=== PATIENT | female | born 2000 | race Caucasian/White ===

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

== ENCOUNTER 2018-10-19 06:53 | Emergency (ER) | payer OTHER ==
[2018-10-19] MEDS ORDERED: NORMAL SALINE 1000 ML 1,000 ML IV ONE (08:39)
[2018-10-19 09:50] LABS: ABSOLUTE LYMPHOCYTES (AUTO) 1.3 10^3/uL (0.5-4.7); ABSOLUTE MONOCYTES (AUTO) 0.7 10^3/uL (0.1-1.4); ABSOLUTE NEUT (AUTO) 12.5 10^3/uL (1.7-8.2); BASOPHILS % (AUTO) 0.3 % (0-2); EOSINOPHILS % (AUTO) 0.2 % (0-6); HEMATOCRIT 36.8 % (36.0-47.0); HEMOGLOBIN 12.7 g/dL (12.0-15.5); LYMPHOCYTES % (AUTO) 9.1 % (13-45); MEAN CORPUSCULAR HGB CONC 34.6 g/dL (32.0-36.0); MEAN CORPUSCULAR VOLUME 90 fl (80-97); MONOCYTES % (AUTO) 4.6 % (3-13); PLATELET COUNT 137 10^3/uL (150-450); SEGMENTED NEUTROPHILS % (AUTO) 85.8 % (42-78); TOTAL CELLS COUNTED % (AUTO) 100 %; WHITE BLOOD COUNT 14.5 10^3/uL (4.0-10.5)
[2018-10-19 10:15] LABS: ANION GAP 10 (5-19); BLOOD UREA NITROGEN 5 mg/dL (7-20); CALCIUM 9.9 mg/dL (8.4-10.2); CARBON DIOXIDE 23 mmol/L (22-30); CHLORIDE 103 mmol/L (98-107); GLUCOSE 87 mg/dL (75-110); POTASSIUM 3.8 mmol/L (3.6-5.0)
[2018-10-19 11:24] LABS: APPEARANCE,URINE SLIGHTLY-CLOUDY; BILIRUBIN,URINE NEGATIVE (NEGATIVE); COLOR,URINE YELLOW; GLUCOSE, URINE NEGATIVE (NEGATIVE); KETONES,URINE 20 mg/dL (NEGATIVE); LEUKOCYTE ESTERASE,URINE NEGATIVE (NEGATIVE); NITRITE,URINE NEGATIVE (NEGATIVE); PROTEIN,URINE NEGATIVE (NEGATIVE); URINE SPECIFIC GRAVITY 1.009; UROBILINOGEN,URINE NEGATIVE mg/dL (<2.0)
--- NOTE | 2018-10-19 12:04 | ER Document Report ---
ED General - General Chief Complaint: Cold Symptoms Stated Complaint: FEVER,CHILLS Time Seen by Provider: 10/19/18 08:13 Notes: Patient is a 18-year-old female currently 11 weeks presents to the emergency department for generalized cough and congestion for the last 2 days. Patient states last evening she had a fever T-max 100.8. States she has been taking Sudafed [id number]. Patient's denying any abdominal pain, dysuria, vaginal discharge or bleeding. Patient's denying any chest pain or respiratory distress. Patient's denying any medical problems, takes vitamins, denies any allergies TRAVEL OUTSIDE OF THE [place] IN LAST 30 DAYS: No - Related Data Allergies/Adverse Reactions: No Known Allergies Allergy (Verified 10/19/18 07:41) Past Medical History - General Information source: Patient - Social History Smoking Status: Never Smoker Chew tobacco use (# tins/day): No Frequency of alcohol use: None Drug Abuse: None Family History: Reviewed & Not Pertinent Patient has suicidal ideation: No Patient has homicidal ideation: No Renal/ Medical History: Denies: Hx Peritoneal Dialysis - Immunizations Immunizations up to date: Yes Hx Diphtheria, Pertussis, Tetanus Vaccination: Yes Review of Systems - Review of Systems Constitutional: Fever EENT: See HPI Cardiovascular: No symptoms reported Respiratory: See HPI Gastrointestinal: No symptoms reported Genitourinary: No symptoms reported Female Genitourinary: No symptoms reported Musculoskeletal: No symptoms reported Skin: No symptoms reported Hematologic/Lymphatic: No symptoms reported Neurological/Psychological: No symptoms reported Physical Exam - Vital signs Vitals: Temp Pulse Resp BP Pulse Ox 99.2 F 133 H 16 118/67 96 10/19/18 07:15 10/19/18 07:15 10/19/18 07:15 10/19/18 07:15 10/19/18 07:15 - Notes Notes: GENERAL: Alert, interacts well. No acute distress. HEAD: Normocephalic, atraumatic. No frontal or maxillary sinus tenderness noted EYES: Pupils equal, round, and reactive to light. Extraocular movements intact. ENT: Oral mucosa moist, tongue midline. Nares patent, TM's intact, nonerythematous, nonbulging bilaterally. Pharynx within normal limits no palatal petechiae or exudate noted. NECK: Full range of motion. Supple. Trachea midline. No lymphadenopathy apprec iated LUNGS: Clear to auscultation bilaterally, no wheezes, rales, or rhonchi. No respiratory distress. HEART: Tachycardic rate and rhythm. No murmur ABDOMEN: Soft, non-tender. Non-distended. Bowel sounds present in all 4 quadrants. EXTREMITIES: Moves all 4 extremities spontaneously. No edema, normal radial and dorsalis pedis pulses bilaterally. No cyanosis. BACK: no cervical, thoracic, lumbar midline tenderness. No saddle anesthesia, normal distal neurovascular exam. NEUROLOGICAL: Alert and oriented x3. Normal speech. cranial nerves II through XII grossly intact PSYCH: Normal affect, normal mood. SKIN: Warm, dry, normal turgor. No rashes or lesions noted. Course - Re-evaluation Re-evalutation: 10/19/18 12:02 Laboratory 10/19/18 10/19/18 10/19/18 09:30 09:30 11:00 WBC 14.5 H RBC 4.10 Hgb 12.7 Hct 36.8 MCV 90 MCH 31.0 MCHC 34.6 RDW 13.0 Plt Count 137 L Lymph % (Auto) 9.1 L [place] % (Auto) 4.6 Eos % (Auto) 0.2 Baso % (Auto) 0.3 Absolute Neuts (auto) 12.5 H Absolute Lymphs (auto) 1.3 Absolute Monos (auto) 0.7 Absolute Eos (auto) 0.0 Absolute Basos (auto) 0.0 Seg Neutrophils % 85.8 H Sodium 135.5 L Potassium 3.8 Chloride 103 Carbon Dioxide 23 Anion Gap 10 BUN 5 L Creatinine 0.55 Est GFR ( Amer) > 60 Est GFR (MDRD) Non-Af > 60 Glucose 87 Calcium 9.9 Urine Color YELLOW Urine Appearance SLIGHTLY-CLOUDY Urine pH 8.0 Ur Specific [place] 1.009 Urine Protein NEGATIVE Urine Glucose (UA) NEGATIVE Urine Ketones 20 H Urine Blood NEGATIVE Urine Nitrite NEGATIVE Urine Bilirubin NEGATIVE Urine Urobilinogen NEGATIVE Ur Leukocyte Esterase NEGATIVE Urine WBC (Auto) 1 Urine RBC (Auto) 1 Urine Bacteria (Auto) TRACE Squamous Epi Cells Auto 6 Urine Mucus (Auto) RARE Urine Ascorbic Acid NEGATIVE Urine HCG, Qual POSITIVE H Patient's urine sent for culture. Patient's physical exam is consistent with an upper respiratory infection. Discussed with her Sudafed is not a safe option in . Discussed the use of Tylenol or Benadryl. Discussed staying well-hydrated. Patient voices after fluids in the emergency department she overall feels a lot better. At this time will discharge with return precautions and follow-up recommendati ons. Verbal discharge instructions given a the bedside and opportunity for questions given. Medication warnings reviewed. Patient is in agreement with this plan and has verbalized understanding of return precautions and the need for primary care follow-up in the next 24-72 hours. This medical record was dictated with voice recognizing software. There may be grammatical, syntax errors that are unintended. - Vital Signs Vital signs: Temp Pulse Resp BP Pulse Ox 98.4 F 108 H 18 116/63 100 10/19/18 08:25 10/19/18 10:25 10/19/18 10:25 10/19/18 10:25 10/19/18 10:25 - Laboratory Result Diagrams: 10/19/18 09:30 10/19/18 09:30 Laboratory results interpreted by me: 10/19/18 10/19/18 10/19/18 09:30 09:30 11:00 WBC 14.5 H Plt Count 137 L Lymph % (Auto) 9.1 L Absolute Neuts (auto) 12.5 H Seg Neutrophils % 85.8 H Sodium 135.5 L BUN 5 L Urine Ketones 20 H Urine HCG, Qual POSITIVE H Discharge - Discharge Clinical Impression: Tachycardia Upper respiratory infection Qualifiers: URI type: unspecified viral URI Qualified Code(s): J06.9 - Acute upper respiratory infection, unspecified Condition: Stable Disposition: HOME, SELF-CARE Instructions: Viral Syndrome ([facility]), Upper Respiratory Illness ([facility]) Additional Instructions: As we discussed you have been seen and treated in the emergency department for an upper respiratory infection while . Sudafed is NOT a safe option for [id number] medications. You can take [id number] Tylenol or Benadryl for generalized symptoms. Please stay well-hydrated and follow-up with your primary care provider in the next 24 to 48 hours. Return to the emergency room for any further concerns. Forms: Return to Work
[2018-10-19 12:13] VITALS: BP 107/57
== END 2018-10-19 12:14 | disposition home or self-care (01) ==
LOC: ER 06:53
DX: O99.511 Diseases of the respiratory system complicating pregnancy, first trimester (principal); J06.9 Acute upper respiratory infection, unspecified; R00.0 Tachycardia, unspecified; O26.891 Other specified pregnancy related conditions, first trimester; R05 Cough; R09.81 Nasal congestion; R50.9 Fever, unspecified; Z3A.11 11 weeks gestation of pregnancy
CPT/HCPCS: 99283; 96360; 36415; 87086; 85025; 81025; 80048; 81001; J7030

== ENCOUNTER 2019-03-24 16:17 | Outpatient (CLI) | payer OTHER ==
[2019-03-24 17:08] LABS: BACTERIA (WET MOUNT) 3+ BACTERIA SEEN; RBCS (WET MOUNT) RARE RBCS SEEN; T.VAGINALIS (WET MOUNT) NO TRICHOMONAS SEEN; WBCS (WET MOUNT) 2+ WBCS SEEN; YEAST (WET MOUNT) NO YEAST SEEN
[2019-03-24 17:09] LABS: EPITHELIALS (WET MOUNT) 4+ EPITHELIALS SEEN
--- NOTE | 2019-03-24 18:26 | RADIOLOGY REPORT (SQ) ---
EXAM DESCRIPTION: U/S OB LIMITED COMPLETED DATE/TIME: 03/24/2019 5:18 pm REASON FOR STUDY: cervical length COMPARISON: None. TECHNIQUE: Limited transabdominal grayscale ultrasound for evaluation of specific requested obstetri arleen parameters. LIMITATIONS: None. FINDINGS: CERVICAL LENGTH: 2.7 cm. Closed. JEFFREY: 6.2 cm. FHR: 143 beats per minute. PRESENTATION: Cephalic. PLACENTA: Anterior, grade 1. Small placental lakes. ANATOMY: Not assessed OTHER: No other significant findings. IMPRESSION: LIMITED OBSTETRICAL ULTRASOUND WITH MEASURED PARAMETERS DELINEATED ABOVE. Trimester of : 33 weeks TECHNICAL DOCUMENTATION: JOB ID: [id number] 2010 [employer]- All Rights Reserved Reading location - IP/workstation name: [email or web address]
[2019-03-24 18:34] LABS: CHLAM PCR NOT DETECTED (NOT DETECT)
[2019-03-24 18:49] LABS: APPEARANCE,URINE CLEAR; BILIRUBIN,URINE NEGATIVE (NEGATIVE); COLOR,URINE YELLOW; GLUCOSE, URINE NEGATIVE (NEGATIVE); KETONES,URINE NEGATIVE (NEGATIVE); LEUKOCYTE ESTERASE,URINE MODERATE (NEGATIVE); NITRITE,URINE NEGATIVE (NEGATIVE); PROTEIN,URINE NEGATIVE (NEGATIVE); URINE SPECIFIC GRAVITY 1.012; UROBILINOGEN,URINE NEGATIVE mg/dL (<2.0)
[2019-03-24 19:14] LABS: URINE AMPHETAMINES SCREEN NEGATIVE; URINE BARBITURATES SCREEN NEGATIVE; URINE BENZODIAZEPINES SCREEN NEGATIVE; URINE COCAINE SCREEN NEGATIVE; URINE MARIJUANA (THC) SCREEN NEGATIVE; URINE METHADONE SCREEN NEGATIVE; URINE PHENCYCLIDINE SCREEN NEGATIVE
== END 2019-03-24 18:10 | disposition home or self-care (01) ==
LOC: PC 16:17 → LC 18:10
PROVIDERS: ATTEND Obstetrics & Gynecology
PROC: 4A1HXCZ Monitoring of Products of Conception, Cardiac Rate, External Approach (ICD-10-PCS; principal; 2019-03-24)
DX: O47.03 False labor before 37 completed weeks of gestation, third trimester (principal); Z3A.33 33 weeks gestation of pregnancy
CPT/HCPCS: 59025; 76815; 80307; 81001; 87210; 87491; 87591

== ENCOUNTER 2019-05-07 08:39 | Inpatient (IN) | payer OTHER ==
[2019-05-07] MEDS ORDERED: RINGERS SOLUTION,LACTATED 1,000 ML IV PRN (08:57)
[2019-05-07] MEDS ORDERED: RINGERS SOLUTION,LACTATED 1,000 ML IV ONE (08:57)
[2019-05-07] MEDS ORDERED: ONDANSETRON HCL INJ/PF 4 MG/2 ML SDV IV PRN (08:59)
[2019-05-07] MEDS ORDERED: MISOPROSTOL 0.2 MG TABLET ONE (09:02)
[2019-05-07] MEDS ORDERED: OXYTOCIN 10 UNIT/ML VIAL ONE (09:02)
[2019-05-07] MEDS ORDERED: OXYTOCIN/NORMAL SALINE 20 UNIT/1,000 ML RTUINJ ONE (09:03)
[2019-05-07] MEDS ORDERED: LIDOCAINE 1% INJ-PF (10 MG/ML) 30 ML SDV ONE (09:03)
[2019-05-07] MEDS ORDERED: ONDANSETRON HCL INJ/PF 4 MG/2 ML SDV ONE (09:34)
[2019-05-07 09:55] LABS: ABSOLUTE BASOPHILS # (AUTO) 0.1 10^3/uL (0.0-0.2); ABSOLUTE LYMPHOCYTES (AUTO) 1.5 10^3/uL (0.5-4.7); ABSOLUTE MONOCYTES (AUTO) 0.4 10^3/uL (0.1-1.4); ABSOLUTE NEUT (AUTO) 12.3 10^3/uL (1.7-8.2); BASOPHILS % (AUTO) 0.3 % (0-2); EOSINOPHILS % (AUTO) 0.1 % (0-6); HEMATOCRIT 34.5 % (36.0-47.0); HEMOGLOBIN 12.1 g/dL (12.0-15.5); LYMPHOCYTES % (AUTO) 10.7 % (13-45); MEAN CORPUSCULAR HEMOGLOBIN 29.8 pg (27.0-33.4); MEAN CORPUSCULAR VOLUME 85 fl (80-97); MONOCYTES % (AUTO) 3.1 % (3-13); PLATELET COUNT 119 10^3/uL (150-450); RED BLOOD COUNT 4.06 10^6/uL (3.72-5.28); RED CELL DISTRIBUTION WIDTH 13.8 % (11.5-14.0); SEGMENTED NEUTROPHILS % (AUTO) 85.8 % (42-78); TOTAL CELLS COUNTED % (AUTO) 100 %; WHITE BLOOD COUNT 14.4 10^3/uL (4.0-10.5)
[2019-05-07] MEDS ORDERED: PHENYLEPHRINE HCL INJ/PF 10 MG/1 ML SDV ONE (10:01)
[2019-05-07] MEDS ORDERED: EPHEDRINE SULFATE INJ 50 MG/1 ML AMPULE ONE (10:01)
[2019-05-07] MEDS ORDERED: FENTANYL/BUPIVACAINE/NS/PF 300 MCG/150 ML RTUINJ EPI ONE (10:01)
[2019-05-07] MEDS ORDERED: FENTANYL CITRATE INJ/PF 100 MCG/2 ML AMPUL ONE (10:01)
[2019-05-07] MEDS ORDERED: BUPIVACAINE HCL 0.25 % INJ/PF (2.5 MG/1 ML) 30 ML VIAL ONE (10:01)
[2019-05-07 11:02] LABS: APPEARANCE,URINE SLIGHTLY-CLOUDY; BILIRUBIN,URINE NEGATIVE (NEGATIVE); COLOR,URINE YELLOW; GLUCOSE, URINE NEGATIVE (NEGATIVE); KETONES,URINE TRACE mg/dL (NEGATIVE); LEUKOCYTE ESTERASE,URINE NEGATIVE (NEGATIVE); NITRITE,URINE NEGATIVE (NEGATIVE); PROTEIN,URINE 30 mg/dL (NEGATIVE); URINE SPECIFIC GRAVITY 1.024; UROBILINOGEN,URINE NEGATIVE mg/dL (<2.0)
[2019-05-07 11:24] LABS: URINE AMPHETAMINES SCREEN NEGATIVE; URINE BARBITURATES SCREEN NEGATIVE; URINE BENZODIAZEPINES SCREEN NEGATIVE; URINE COCAINE SCREEN NEGATIVE; URINE MARIJUANA (THC) SCREEN NEGATIVE; URINE METHADONE SCREEN NEGATIVE; URINE PHENCYCLIDINE SCREEN NEGATIVE
[2019-05-07] MEDS ORDERED: PROMETHAZINE HCL INJ 25 MG/1 ML VIAL IV PRN (12:51)
[2019-05-07] MEDS ORDERED: DIPHENHYDRAMINE HCL 25 MG CAPSULE PO PRN (12:51)
[2019-05-07] MEDS ORDERED: PSEUDOEPHEDRINE HCL 30 MG TABLET PO PRN (12:51)
[2019-05-07] MEDS ORDERED: PROMETHAZINE HCL 25 MG TABLET PO PRN (12:51)
[2019-05-07] MEDS ORDERED: PROMETHAZINE HCL 25 MG SUPP.RECT PR PRN (12:51)
[2019-05-07] MEDS ORDERED: ZOLPIDEM TARTRATE 5 MG TABLET PO PRN (12:51)
[2019-05-07] MEDS ORDERED: ACETAMINOPHEN 325 MG TABLET PO PRN (12:51)
[2019-05-07] MEDS ORDERED: GLYCERIN/WITCH HAZEL LEAF 1 EACH MED..WIPE TP PRN (12:51)
[2019-05-07] MEDS ORDERED: MEASLES,MUMPS&RUBELLA VACC/PF 0.5 ML VIAL SUBCUT PRN (12:51)
[2019-05-07] MEDS ORDERED: ACETAMINOPHEN WITH CODEINE #3 TABLET PO PRN ×2 (12:51)
[2019-05-07] MEDS ORDERED: BENZOCAINE/MENTHOL AEROSOL SPRAY 56 ML TOP PRN (12:51)
[2019-05-07] MEDS ORDERED: MAGNESIUM HYDROXIDE SUSP 30 ML UDCUP PO PRN (12:51)
[2019-05-07] MEDS ORDERED: OXYTOCIN/NORMAL SALINE 20 UNIT/1,000 ML RTUINJ IV PRN (12:51)
[2019-05-07] MEDS ORDERED: NA PHOS,M-B/NA PHOS,DI-BA (ADULT) 133 ML ENEMA PR PRN (12:51)
[2019-05-07] MEDS ORDERED: DIBUCAINE 1% OINTMENT 28 GM TP PRN (12:51)
[2019-05-07] MEDS ORDERED: DIPH/PERTUSS(ACELL)/TETANUS VAC/PF 0.5 ML SYR (>=10YO) IM PRN (12:51)
--- NOTE | 2019-05-07 13:56 | Delivery Summary ---
Del Sum A-C Datetime Report Generated by CPN: 05/07/2019 13:56 DELIVERY PERSONNEL DELIVERY PERSONNEL: [id number] Delivery Doctor:: Katina Worrell MD Labor and Delivery Nurse:: Zaina Freeman RN Nursery Nurse:: [facility] Nursery Nurse:: Daniella Escamilla RN Claims Consultant/RN OUTPATIENT SURGERY: Kellen Webber, ST MATERNAL INFORMATION Delivery Anesthesia: Epidural Medications After Delivery: Pitocin Drip 20 Units/1000ml NSS Meds After Delivery Comment: pitocin 20 units in 1000mL nss Estimated Blood Loss (ml): 50 Delivery QBL: 50 Maternal Complications: None Provider Comments: VMI delivered in JIMMIE presentation with compound left arm and elbow. Shoulders and body delivered without difficulty. Cord double clamped and cut. to maternal abdomen for NRP. Placenta delivered intact spontaneously. FF at U. 2nd degree perineal lacerations reviewed without difficulty. Good hemostasis. Mother and baby stable upon provider leaving the room LABOR SUMMARY EDC: 05/12/2019 00:00 No. Babies in Womb: 1 Attempted: No Labor Anesthesia: Epidural LABOR INFORMATION Reason for Induction: Not Applicable Onset of Labor: 05/07/2019 05:00 Complete Dilatation: 05/07/2019 11:40 Oxytocin: N/A Group B Beta Strep: negative Steroids Given: None Reason Steroids Not Administered: Not Applicable MEMBRANES Membranes Rupture Method: Artificial Rupture of Membranes: 05/07/2019 11:23 Length of Rupture (hr): 1.08 Amniotic Fluid Color: Particulate Meconium Amniotic Fluid Amount: Moderate Amniotic Fluid Odor: Normal STAGES OF LABOR Stage 1 hr: 6 Stage 1 min: 40 Stage 2 hr: 0 Stage 2 min: 48 Stage 3 hr: 0 Stage 3 min: 6 Total Time in Labor hr: 7 Total Time in Labor min: 34 VAGINAL DELIVERY Episiotomy: None Laceration #1: Perineal Laceration Extension #1: Second Degree Laceration Repair: Yes Laceration Repair Note: 2nd degree perineal laceration repaired for hemostasis Sponge Count Correct: Yes Sharps Count Correct: Yes CSECTION DELIVERY Primary Indication: N/A Secondary Indication: N/A CSection Incidence: N/A Labor: N/A Elective: N/A CSection Incision: N/A BABY A INFORMATION Infant Delivery Date/Time: 05/07/2019 12:28 Method of Delivery: Vaginal Nurse Controlled Delivery: No Born in Route : No : N/A Forceps: N/A Vacuum Extraction: N/A Shoulder Dystocia : No PRESENTATION/POSITION BABY A Presentation: Cephalic Cephalic Presentation: Vertex Vertex Position: Left Occipital Anterior Breech Presentation: N/A PLACENTA INFORMATION BABY A Placenta Delivery Time : 05/07/2019 12:34 Placenta Method of Delivery: Spontaneous Placenta Status: Delivered SCORES BABY A Heart Rate 1 min: >100 bpm Resp Effort 1 min: Good Cry Reflex Irritability 1 min: Cough or Sneeze or Pulls Away Muscle Tone 1 min: Active Motion Color 1 min: Blue/Pale Resuscitation Effort 1 min: Tactile Stimulation SCORE 1 MIN: 8 Heart Rate 5 min: >100 bpm Resp Effort 5 min: Good Cry Reflex Irritability 5 min: Cough or Sneeze or Pulls Away Muscle Tone 5 min: Active Motion Color 5 min: Body Chaplin, Extremities Blue Resuscitation Effort 5 min: Tactile Stimulation SCORE 5 MIN: 9 INFANT INFORMATION BABY A Gestational Age at Delivery: 39.2 Gestational Status: Full Term- 39- 40.6 Weeks Outcome : Liveborn Condition : Stable Infant Sex: Male IDENTIFICATION BABY A Verification Date/Time: 05/07/2019 12:35 ID Band Number: [id number] Mother's Name Verified: Yes Infant RN Verifying Infant: M. Benitez RN, C.[place] RN WEIGHT/LENGTH BABY A Infant Birthweight (gm): 3520 Infant Weight (lb): 7 Weight (oz): 12 Infant Length (in): 20.25 Length (cm): 51.44 CORD INFORMATION BABY A No. Cord Vessels: 3 Nuchal Cord : N/A Cord Blood Taken: Yes-For Storage (Mom's Blood type +) (Annotations: Data stored by [facility] on behalf of user) Infant Suction: Mouth; Nose ASSESSMENT BABY A Complications: Meconium Physical Findings at Delivery: Within Normal Limits Skin to Skin: Yes Skin to Skin Time (min): 5 Infant Care By: TMartin RN, MMobley RN Transferred To: Nursery BABY B INFORMATION : N/A SIGNATURES Signature: with User ID: [email or web address]
[2019-05-07] MEDS ORDERED: BENZOCAINE/MENTHOL AEROSOL SPRAY 56 ML ONE (14:20)
[2019-05-07] MEDS ORDERED: IBUPROFEN 800 MG TABLET ONE (14:20)
[2019-05-07] MEDS: IBUPROFEN 800 MG TABLET PO SCH ×2 (14:23→21:29)
[2019-05-07] MEDS: DOCUSATE SODIUM 100 MG CAPSULE PO SCH (17:49)
[2019-05-07] MEDS: FERROUS SULFATE 325 MG TABLET PO SCH (17:49)
--- NOTE | 2019-05-07 19:05 | Admission Physical ---
Datetime Report Generated by CPN: 05/07/2019 19:05 CURRENT ADMISSION Chief Complaint: Uterine Contractions Indication for Induction: Not Applicable Admit Impression : Term, Intrauterine ; Intact Membranes Admit Plan: Admit to Unit ALLERGIES Medication Allergies: No Medication Allergies: No Known Allergies (03/24/2019) Latex: No Latex Allergies Food Allergies: n/a Environmental Allergies: n/a OBSTETRICAL HISTORY EDC: 05/12/2019 00:00 : 1 Para: 0 Term: 0 : 0 SAB: 0 IAB: 0 Ectopic: 0 Livin Cesareans: 0 VBACs: 0 Multiple Births: 0 Gestational Diabetes: No Rh Sensitization: No Incompetent Cervix: No REMEDIOS: No Infertility: No ART Treatment: No Uterine Anomaly: No IUGR: No Hx Previous C/S: No Macrosomia: No Hx Loss/Stillborn: No PIH: No Hx : No Placenta Previa/Abruption: No Depression/PP Depression: No PTL/PROM: No Post Hemorrhage: No Current Procedures: Ultrasound Obstetrical History Comments: G1- current SEE RECORDS Alcohol: No Marijuana : No Cocaine: No Other Illicit Drugs: No Cigarettes: Never Smoker. [id number] MEDICAL HISTORY Diabetes: No Blood Transfusion: No Pulmonary Disease (Asthma, TB): No Breast Disease: No Hypertension: No Health Underwriter Surgery: No Heart Disease: No Hosp/Surgery: No Autoimmune Disorder: No Anesthetic Complications: No Kidney Disease: No Abnormal Pap Smear: No Neuro/Epilepsy: No Psychiatric Disorders: No Other Medical Diseases: No Hepatitis/Liver Disease: No Significant Family History: No Varicosities/Phlebitis: No Trauma/Violence : No Thyroid Dysfunction: No INFECTIOUS HISTORY Gonorrhea: No Genital Herpes: No Chlamydia: No Tuberculosis: No Syphilis: No Hepatitis: No HIV/AIDS Exposure: No Rash or Viral Illness: No HPV: No PHYSICAL EXAM General: Normal HEENT: Normal Neurologic: Normal Thyroid: Deferred Heart: Normal Lungs: Normal Breast: Deferred Back: Normal Abdomen: Normal Genitourinary Exam: Normal Extremities: Normal DTRs: Normal Pelvic Type: Adequate Vital Signs: Reviewed VAGINAL EXAM Dilatation: 7 Effacement: 100 Station: 0 Contraction Comments: q 2-3 MEMBRANES Membranes: Intact FETUS A EGA: 39.2 Monitoring: External US FHR- Baseline: 120 Variability: Moderate 6-25bpm Accelerations: 15X15 Decelerations: None Presentation: Vertex Admit Comment: 18yo at 39+2ega presents for active labor. Advanced dilation. Meconium on AROM after epidural. GBS negative. o/w uncomplicated. Admit to labor and delivery and anticipate . PLANS FOR LABOR AND DELIVERY Labor and Delivery: Plan Pain Management: Epidural Feeding Preference: Both Benefit of Breast Feed Discussed: Yes Circumcision: Yes INFORMED CONSENT Informed Consent Obtained: Vaginal Delivery; Risks, Benefits and Alternatives Discussed Signature: with User ID: [email or web address]
[2019-05-07] MEDS ORDERED: FAMOTIDINE 20 MG TABLET PO SCH (22:00)
[2019-05-08] MEDS: IBUPROFEN 800 MG TABLET PO SCH ×3 (05:25→21:07)
[2019-05-08 08:49] LABS: HEMATOCRIT 29.3 % (36.0-47.0); HEMOGLOBIN 10.1 g/dL (12.0-15.5); MEAN CORPUSCULAR HEMOGLOBIN 29.7 pg (27.0-33.4); MEAN CORPUSCULAR HGB CONC 34.6 g/dL (32.0-36.0); MEAN CORPUSCULAR VOLUME 86 fl (80-97); RED BLOOD COUNT 3.41 10^6/uL (3.72-5.28); WHITE BLOOD COUNT 12.5 10^3/uL (4.0-10.5)
[2019-05-08 09:24] LABS: PLATELET COUNT 85 10^3/uL (150-450)
--- NOTE | 2019-05-08 09:39 | PDOC PROGRESS REPORT ---
Subjective-OB Progress Note for:: 05/08/19 Subjective: Doing well, no c/o, Physical Exam (OB) Vital Signs: Temp Pulse Resp BP Pulse Ox 98.4 F 89 16 119/79 97 05/08/19 07:12 05/08/19 07:12 05/08/19 07:12 05/08/19 07:12 05/08/19 07:12 Intake & Output 05/07/19 05/08/19 05/09/19 06:59 06:59 06:59 Output Total 600 Balance -600 Weight 101 kg - PIH/Pre-Eclampsia Headache: Absent Epigastric Pain: No Visual Changes: No - Lochia Lochia Amount: Small 10-25 ml Lochia Color: Rubra/Red - Abdomen Description: Soft Hernia Present: No Fundal Description: Firm, Midline Fundal Height: u/u - u/2 Objective-Diagnostic Laboratory: 05/08/19 08:03 05/07/19 05/07/19 05/07/19 09:40 09:40 10:40 WBC 14.4 H RBC 4.06 Hgb 12.1 Hct 34.5 L MCV 85 MCH 29.8 MCHC 35.0 RDW 13.8 Plt Count 119 L Seg Neutrophils % 85.8 H Urine Color YELLOW Urine Appearance SLIGHTLY-CLOUDY Urine pH 7.0 Ur Specific [place] 1.024 Urine Protein 30 H Urine Glucose (UA) NEGATIVE Urine Ketones TRACE H Urine Blood SMALL H Urine Nitrite NEGATIVE Ur Leukocyte Esterase NEGATIVE Blood Type O POSITIVE Antibody Screen NEGATIVE 05/08/19 05/08/19 06:56 08:03 WBC Cancelled 12.5 H RBC Cancelled 3.41 L Hgb Cancelled 10.1 L Hct Cancelled 29.3 L MCV Cancelled 86 MCH Cancelled 29.7 MCHC Cancelled 34.6 RDW Cancelled 14.0 Plt Count Cancelled 85 L Seg Neutrophils % Urine Color Urine Appearance Urine pH Ur Specific [place] Urine Protein Urine Glucose (UA) Urine Ketones Urine Blood Urine Nitrite Ur Leukocyte Esterase Blood Type Antibody Screen Assessment and Plan(PN) - Assessment and Plan (1) Obstetrical laceration, second degree Is this a current diagnosis for this admission?: Yes (2) Vaginal delivery Is this a current diagnosis for this admission?: Yes (3) Gestational thrombocytopenia Qualifiers: Trimester: unspecified trimester Qualified Code(s): O99.119 - Other diseases of the blood and blood-forming organs and certain disorders involving the immune mechanism complicating , unspecified trimester; D69.6 - Thrombocytopenia, unspecified Is this a current diagnosis for this admission?: Yes (4) Active labor at term Is this a current diagnosis for this admission?: Yes - Time Spent with Patient Time with patient: Less than 15 minutes Medications reviewed and adjusted accordingly: Yes - Disposition Anticipated Discharge: Home Within: within 24 hours
[2019-05-08] MEDS: PRENATAL VITAMIN W DHA CAPSULE PO SCH (10:10)
[2019-05-08] MEDS: DOCUSATE SODIUM 100 MG CAPSULE PO SCH ×2 (10:10→17:39)
[2019-05-08] MEDS: FERROUS SULFATE 325 MG TABLET PO SCH ×2 (10:10→17:39)
[2019-05-08] MEDS: SENNOSIDES/DOCUSATE 8.6-50 MG 1 EACH TABLET PO SCH (10:10)
[2019-05-09] MEDS: IBUPROFEN 800 MG TABLET PO SCH (05:39)
[2019-05-09 07:52] VITALS: BP 125/78
--- NOTE | 2019-05-09 09:20 | PDOC DISCHARGE SUMMARY ---
Impression - Admit/DC Date/PCP Admission Date/Primary Care Provider: 05/07/19 09:19 TORRI COOK MD Discharge Date: 05/09/19 - PP DAY #2, Doing well, denies heavy bleeding, UOB voiding, , O+, Rubela immune - Additional Information Resuscitation Status: Full Code Discharge Diet: As Tolerated, Regular Discharge Activity: Activity As Tolerated Referrals: TORRI COOK MD [Primary Care Provider] - Prescriptions: Ibuprofen [Motrin 800 mg Tablet] 800 mg PO Q8 #60 tablet Home Medications: Vit,Calc76/Iron/Folic [Prenatabs Rx Tablet] 1 tab PO DAILY 05/07/19 Acetaminophen [Tylenol 325 mg Tablet] 650 mg PO Q4HP PRN tablet 05/09/19 Ibuprofen [Motrin 800 mg Tablet] 800 mg PO Q8 #60 tablet 05/09/19 HPI Reason(s) for Admission: Induction of Labor Intrapartum Procedure(s): Spontaneous Vaginal Delivery Complication(s): Laceration-Vaginal Laceration-Degree: 2nd Results Laboratory Results: WBC 12.5 10^3/uL (4.0-10.5) H 05/08/19 08:03 RBC 3.41 10^6/uL (3.72-5.28) L 05/08/19 08:03 Hgb 10.1 g/dL (12.0-15.5) L 05/08/19 08:03 Hct 29.3 % (36.0-47.0) L 05/08/19 08:03 MCV 86 fl (80-97) 05/08/19 08:03 MCH 29.7 pg (27.0-33.4) 05/08/19 08:03 MCHC 34.6 g/dL (32.0-36.0) 05/08/19 08:03 RDW 14.0 % (11.5-14.0) 05/08/19 08:03 Plt Count 85 10^3/uL (150-450) L 05/08/19 08:03 Lymph % (Auto) 10.7 % (13-45) L 05/07/19 09:40 [place] % (Auto) 3.1 % (3-13) 05/07/19 09:40 Eos % (Auto) 0.1 % (0-6) 05/07/19 09:40 Baso % (Auto) 0.3 % (0-2) 05/07/19 09:40 Absolute Neuts (auto) 12.3 10^3/uL (1.7-8.2) H 05/07/19 09:40 Absolute Lymphs (auto) 1.5 10^3/uL (0.5-4.7) 05/07/19 09:40 Absolute Monos (auto) 0.4 10^3/uL (0.1-1.4) 05/07/19 09:40 Absolute Eos (auto) 0.0 10^3/uL (0.0-0.6) 05/07/19 09:40 Absolute Basos (auto) 0.1 10^3/uL (0.0-0.2) 05/07/19 09:40 Seg Neutrophils % 85.8 % (42-78) H 05/07/19 09:40 Platelet Estimate Cancelled 05/08/19 06:56 Urine Color YELLOW 05/07/19 10:40 Urine Appearance SLIGHTLY-CLOUDY 05/07/19 10:40 Urine pH 7.0 (5.0-9.0) 05/07/19 10:40 Ur Specific [place] 1.024 05/07/19 10:40 Urine Protein 30 mg/dL (NEGATIVE) H 05/07/19 10:40 Urine Glucose (UA) NEGATIVE mg/dL (NEGATIVE) 05/07/19 10:40 Urine Ketones TRACE mg/dL (NEGATIVE) H 05/07/19 10:40 Urine Blood SMALL (NEGATIVE) H 05/07/19 10:40 Urine Nitrite NEGATIVE (NEGATIVE) 05/07/19 10:40 Urine Bilirubin NEGATIVE (NEGATIVE) 05/07/19 10:40 Urine Urobilinogen NEGATIVE mg/dL (<2.0) 05/07/19 10:40 Ur Leukocyte Esterase NEGATIVE (NEGATIVE) 05/07/19 10:40 Urine Ascorbic Acid NEGATIVE (NEGATIVE) 05/07/19 10:40 Urine Opiates Screen NEGATIVE 05/07/19 10:40 Urine Methadone Screen NEGATIVE 05/07/19 10:40 Ur Barbiturates Screen NEGATIVE 05/07/19 10:40 Ur Phencyclidine Scrn NEGATIVE 05/07/19 10:40 Ur Amphetamines Screen NEGATIVE 05/07/19 10:40 U Benzodiazepines Scrn NEGATIVE 05/07/19 10:40 Urine Cocaine Screen NEGATIVE 05/07/19 10:40 U Marijuana (THC) Screen NEGATIVE 05/07/19 10:40 RPR NONREACTIVE (NONREACTIVE) 05/07/19 09:40 Slides for Path Review Cancelled 05/08/19 06:56 Blood Type O POSITIVE 05/07/19 09:40 Antibody Screen NEGATIVE 05/07/19 09:40 Plan Health Concerns: watch PP vaginal bleeding, precautions reviewed. Take Motrin sparingly, Tylenol okay Plan of Treatment: d/c home, f/up with [facility] in 4 wks Time Spent: Less than 30 Minutes
[2019-05-09] MEDS: PRENATAL VITAMIN W DHA CAPSULE PO SCH (10:05)
[2019-05-09] MEDS: FERROUS SULFATE 325 MG TABLET PO SCH (10:05)
[2019-05-09] MEDS: SENNOSIDES/DOCUSATE 8.6-50 MG 1 EACH TABLET PO SCH (10:05)
[2019-05-09] MEDS: DOCUSATE SODIUM 100 MG CAPSULE PO SCH (10:05)
== END 2019-05-09 13:24 | disposition home or self-care (01) | DRG 806 ==
LOC: LC 08:39 → LR 09:19 → 2S 15:29
PROVIDERS: ADMIT Student in an Organized Health Care Education/Training Program; ATTEND Student in an Organized Health Care Education/Training Program
PROC: 10E0XZZ Delivery of Products of Conception, External Approach (ICD-10-PCS; principal; 2019-05-07)
PROC: 0KQM0ZZ Repair Perineum Muscle, Open Approach (ICD-10-PCS; 2019-05-07)
PROC: 10907ZC Drainage of Amniotic Fluid, Therapeutic from Products of Conception, Via Natural or Artificial Opening (ICD-10-PCS; 2019-05-07)
DX: O77.0 Labor and delivery complicated by meconium in amniotic fluid (principal); O99.12 Other diseases of the blood and blood-forming organs and certain disorders involving the immune mechanism complicating childbirth; Z37.0 Single live birth; D69.6 Thrombocytopenia, unspecified; O32.6XX0 Maternal care for compound presentation, not applicable or unspecified; O70.1 Second degree perineal laceration during delivery; Z3A.39 39 weeks gestation of pregnancy
CPT/HCPCS: 36415; 80307; 81005; 85025; 85027; 86592; 86850; 86900; 86901; 94760; J2370; J2405; J2590; J3010; J3490